=== PATIENT | female | born 1960 | race African-American/Black ===

== ENCOUNTER 2021-06-17 20:16 | Emergency (ER) | payer BC ==
[2021-06-17] MEDS ORDERED: Meclizine HCl 25 MG TAB ONE (20:52)
[2021-06-17] MEDS ORDERED: Acetaminophen 500 MG TAB ONE ×2 (20:52→20:54)
== END 2021-06-17 22:35 | disposition home or self-care (01) ==
LOC: BURERS 20:16
DX: I10 Essential (primary) hypertension (principal); R42 Dizziness and giddiness; E78.5 Hyperlipidemia, unspecified; J45.909 Unspecified asthma, uncomplicated
CPT/HCPCS: 93005